=== PATIENT | male | born 1955 | race Caucasian/White ===

== ENCOUNTER 2020-09-14 10:09 | Outpatient (REF) | payer OTHER, SELFPAY ==
[2020-09-14 13:56] LABS: MANUAL DIFF FLAG NO
[2020-09-14 14:10] LABS: Basophils Percent Auto 0.2 % (0-2); Eosinophils Absolute Auto 0.3 X10*3/uL (0.0-0.4); Eosinophils Percent Auto 4.3 % (0-4); Hematocrit 41.5 % (42-52); Hemoglobin 13.6 g/dl (14.0-18.0); Imm Gran Abs Auto 0.01 X10*3/uL (0.00-0.03); Imm Gran Pct Auto 0.2 % (0.0-0.4); Lymphocytes Absolute Auto 1.7 X10*3/uL (1.2-4.9); Lymphocytes Percent Auto 26.5 % (20-40); Mean Corpuscular HGB Conc 32.8 g/dl (31.0-36.0); Mean Corpuscular Hemoglobin 28.8 pg (27.0-33.0); Mean Corpuscular Volume 87.7 fL (80-98); Mean Platelet Volume 10.5 fL (9.4-12.4); Monocytes Absolute Auto 0.8 X10*3/uL (0.1-1.2); Monocytes Percent Auto 12.8 % (2-11); Neutrophils Absolute Auto 3.6 X10*3/uL (2.0-8.3); Platelet Count 229 X10*3/uL (160-400); Red Blood Count 4.73 X10*6/uL (4.60-5.80); Red Cell Distribution Width 12.4 % (11.0-16.0); White Blood Count 6.5 X10*3/uL (4.8-10.8)
[2020-09-14 14:45] LABS: Alanine Aminotransferase 26 U/L (0-40); Albumin Level 4.4 g/dL (3.5-5.0); Alkaline Phosphatase 60 U/L (39-117); Anion Gap 15 (12-20); Aspartate Amino Transferase 25 U/L (5-37); Bilirubin Total 0.4 mg/dL (0.0-1.0); Blood Urea Nitrogen 16 mg/dL (9-16); Calcium 9.4 mg/dL (8.4-10.2); Carbon Dioxide 28 mmol/L (22-29); Chloride 102 mmol/L (96-108); Estimated Glomerular Filt Rate > 60; Glucose Random 140 mg/dL (60-115); Iron 68 mcg/dL (45-160); Percent Iron Saturation 19 % (15-50); Potassium 4.6 mmol/l (3.3-5.1); Sodium 140 mmol/L (135-145); Total Iron Binding Capacity 354 mcg/dL (228-428); Total Protein 7.6 g/dL (6.5-8.0); Unsaturated Iron Binding 286 ug/dL
== END 2020-09-14 10:10 | disposition home or self-care (01) ==
LOC: HO.10HDL 10:09
PROVIDERS: Visit Provider Internal Medicine
DX: I10 Essential (primary) hypertension (principal); E11.9 Type 2 diabetes mellitus without complications; D64.9 Anemia, unspecified
CPT/HCPCS: 36415; 80053; 83540; 85025

== ENCOUNTER 2020-12-21 09:53 | Outpatient (REF) | payer BC, SELFPAY ==
[2020-12-21 13:32] LABS: MANUAL DIFF FLAG NO
[2020-12-21 13:36] LABS: Basophils Percent Auto 0.5 % (0-2); Eosinophils Absolute Auto 0.3 X10*3/uL (0.0-0.4); Eosinophils Percent Auto 4.3 % (0-4); Hemoglobin 13.9 g/dl (14.0-18.0); Imm Gran Abs Auto 0.02 X10*3/uL (0.00-0.03); Imm Gran Pct Auto 0.3 % (0.0-0.4); Lymphocytes Absolute Auto 1.8 X10*3/uL (1.2-4.9); Lymphocytes Percent Auto 27.7 % (20-40); Mean Corpuscular HGB Conc 33.1 g/dl (31.0-36.0); Mean Corpuscular Hemoglobin 28.5 pg (27.0-33.0); Mean Corpuscular Volume 86.1 fL (80-98); Mean Platelet Volume 10.6 fL (9.4-12.4); Monocytes Absolute Auto 0.7 X10*3/uL (0.1-1.2); Monocytes Percent Auto 10.3 % (2-11); Neutrophils Absolute Auto 3.7 X10*3/uL (2.0-8.3); Neutrophils Percent Auto 56.9 % (45-73); Platelet Count 259 X10*3/uL (160-400); Red Blood Count 4.88 X10*6/uL (4.60-5.80); Red Cell Distribution Width 12.4 % (11.0-16.0); White Blood Count 6.5 X10*3/uL (4.8-10.8)
[2020-12-21 14:09] LABS: Carbon Dioxide 23 mmol/L (22-29); Chloride 102 mmol/L (96-108); Potassium 4.3 mmol/l (3.3-5.1); Sodium 138 mmol/L (135-145)
[2020-12-21 14:10] LABS: Alanine Aminotransferase 29 U/L (0-40); Albumin Level 4.5 g/dL (3.5-5.0); Alkaline Phosphatase 76 U/L (39-117); Anion Gap 17 (12-20); Aspartate Amino Transferase 26 U/L (5-37); Bilirubin Total 0.6 mg/dL (0.0-1.0); Blood Urea Nitrogen 18 mg/dL (9-16); Calcium 9.4 mg/dL (8.4-10.2); Estimated Glomerular Filt Rate > 60; Glucose Random 179 mg/dL (60-115); Total Protein 7.6 g/dL (6.5-8.0)
[2020-12-21 14:58] LABS: Estimated Average Glucose 174 mg/dL; Hemoglobin A1c % 7.7 %
== END 2020-12-21 09:54 | disposition home or self-care (01) ==
LOC: HO.10HDL 09:53
PROVIDERS: Visit Provider Internal Medicine
DX: I10 Essential (primary) hypertension (principal); E11.9 Type 2 diabetes mellitus without complications
CPT/HCPCS: 36415; 80053; 83036; 85025

== ENCOUNTER 2021-11-27 07:43 | Outpatient (REF) | payer MEDICARE, SELFPAY ==
[2021-11-27 08:02] LABS: MANUAL DIFF FLAG NO
[2021-11-27 08:14] LABS: Basophils Percent Auto 0.2 % (0-2); Eosinophils Absolute Auto 0.3 X10*3/uL (0.0-0.4); Eosinophils Percent Auto 3.5 % (0-4); Hematocrit 45.2 % (42.0-52.0); Hemoglobin 15.4 g/dl (14.0-18.0); Imm Gran Abs Auto 0.04 X10*3/uL (0.00-0.03); Imm Gran Pct Auto 0.4 % (0.0-0.4); Lymphocytes Absolute Auto 1.8 X10*3/uL (1.2-4.9); Lymphocytes Percent Auto 20.1 % (20-40); Mean Corpuscular HGB Conc 34.1 g/dl (31.0-36.0); Mean Corpuscular Hemoglobin 28.8 pg (27.0-33.0); Mean Corpuscular Volume 84.6 fL (80.0-98.0); Mean Platelet Volume 9.9 fL (9.4-12.4); Monocytes Absolute Auto 0.9 X10*3/uL (0.1-1.2); Monocytes Percent Auto 9.5 % (2-11); Neutrophils Percent Auto 66.3 % (45-73); Platelet Count 269 X10*3/uL (160-400); Red Blood Count 5.34 X10*6/uL (4.60-5.80); Red Cell Distribution Width 12.5 % (11.0-16.0)
[2021-11-27 08:17] LABS: Appearance Urine CLEAR; Color Urine YELLOW; Glucose Urine UA 500 MG/DL (NEG); Leukocyte Esterase Urine NEG (NEG); Nitrite Urine NEG (NEG); Specific Gravity - Urine 1.025 (1.005-1.025); Urine Blood NEG (NEG); Urine Ketones 5 MG/DL (NEG); Urine Protein NEG (NEG-TRACE)
[2021-11-27 08:28] LABS: Estimated Average Glucose 220 mg/dL; Hemoglobin A1c % 9.3 %
[2021-11-27 08:32] LABS: Creatinine Urine 181.32 mg/dL
[2021-11-27 08:41] LABS: Alanine Aminotransferase 70 U/L (0-40); Albumin Level 4.5 g/dL (3.5-5.0); Alkaline Phosphatase 70 U/L (39-117); Anion Gap 13 (12-20); Aspartate Amino Transferase 46 U/L (5-37); Bilirubin Total 0.6 mg/dL (0.0-1.0); Blood Urea Nitrogen 18 mg/dL (9-16); Calcium 9.9 mg/dL (8.4-10.2); Carbon Dioxide 23 mmol/L (22-29); Chloride 103 mmol/L (96-108); Cholesterol 189 mg/dL; Estimated Glomerular Filt Rate > 60; Glucose Fasting 290 mg/dL (60-99); HDL Cholesterol 47 mg/dL; LDL Cholesterol Calculated 112 mg/dl; Potassium 4.3 mmol/L (3.3-5.1); Sodium 135 mmol/L (135-145); Total Protein 7.9 g/dL (6.5-8.0); Triglycerides 152 mg/dL
[2021-11-27 09:02] LABS: Prostate Specific Antigen 1.91 ng/mL (<0.05-4.0); Vitamin D 25-OH Total 31.7 ng/mL (>30)
== END 2021-11-27 07:44 | disposition home or self-care (01) ==
LOC: HO.LAB 07:43
PROVIDERS: PCP Internal Medicine; Visit Provider Internal Medicine
DX: E11.9 Type 2 diabetes mellitus without complications (principal); N40.0 Benign prostatic hyperplasia without lower urinary tract symptoms; I10 Essential (primary) hypertension; E78.00 Pure hypercholesterolemia, unspecified; E55.9 Vitamin D deficiency, unspecified; Z12.5 Encounter for screening for malignant neoplasm of prostate
CPT/HCPCS: 36415; 80053; 80061; 81003; 82043; 82306; 83036; 84153; 85025

== ENCOUNTER 2022-02-20 08:29 | Outpatient (REF) | payer MEDICARE, SELFPAY ==
[2022-02-20 09:22] LABS: Estimated Average Glucose 197 mg/dL; Hemoglobin A1c % 8.5 %
[2022-02-20 09:47] LABS: Alanine Aminotransferase 56 U/L (0-40); Albumin Level 4.4 g/dL (3.5-5.0); Alkaline Phosphatase 70 U/L (39-117); Anion Gap 13 (12-20); Aspartate Amino Transferase 38 U/L (5-37); Bilirubin Total 0.6 mg/dL (0.0-1.0); Blood Urea Nitrogen 16 mg/dL (9-16); Calcium 9.8 mg/dL (8.4-10.2); Carbon Dioxide 28 mmol/L (22-29); Chloride 101 mmol/L (96-108); Estimated Glomerular Filt Rate > 60; Glucose Random 248 mg/dL (60-115); Potassium 4.7 mmol/L (3.3-5.1); Sodium 137 mmol/L (135-145); Total Protein 7.7 g/dL (6.5-8.0)
[2022-02-20 11:52] LABS: Creatinine Urine 221.97 mg/dL; Microalbum/Creatinine Ratio Ur 6.7 ug/mg cr
== END 2022-02-20 08:30 | disposition home or self-care (01) ==
LOC: HO.LAB 08:29
PROVIDERS: PCP Internal Medicine; Visit Provider Internal Medicine
DX: I10 Essential (primary) hypertension (principal); E11.9 Type 2 diabetes mellitus without complications; R94.5 Abnormal results of liver function studies
CPT/HCPCS: 36415; 80053; 82043; 83036

== ENCOUNTER 2022-03-05 10:07 | Outpatient (REF) | payer MEDICARE, SELFPAY ==
--- NOTE | ~2022-03-05 | XR_ITS ---
EXAMINATION: XR SHOULDER, RIGHT CLINICAL INFORMATION: Right shoulder pain COMPARISON: None TECHNIQUE: AP external rotation, Grashey, scapular Y, and axillary views of the right shoulder. FINDINGS: The bones and soft tissues are normal. No fracture. Glenohumeral and acromioclavicular alignment is anatomic with normal joint space. No abnormal soft tissue calcifications. XR/XR shoulder RT min 2V IMPRESSION: Normal right shoulder.
== END 2022-03-05 10:08 | disposition home or self-care (01) ==
LOC: HO.XRAY 10:07
PROVIDERS: PCP Internal Medicine; Visit Provider Internal Medicine
DX: M25.511 Pain in right shoulder (principal)
CPT/HCPCS: 73030

== ENCOUNTER 2022-06-18 10:42 | Outpatient (REF) | payer MEDICARE, SELFPAY ==
[2022-06-18 13:48] LABS: Alanine Aminotransferase 54 U/L (0-40); Albumin Level 4.5 g/dL (3.5-5.0); Alkaline Phosphatase 76 U/L (39-117); Anion Gap 13 (12-20); Aspartate Amino Transferase 39 U/L (5-37); Bilirubin Total 0.5 mg/dL (0.0-1.0); Blood Urea Nitrogen 13 mg/dL (9-16); Calcium 9.4 mg/dL (8.4-10.2); Carbon Dioxide 24 mmol/L (22-29); Chloride 104 mmol/L (96-108); Estimated Glomerular Filt Rate > 60; Glucose Random 167 mg/dL (60-115); Potassium 4.6 mmol/L (3.3-5.1); Sodium 136 mmol/L (135-145); Total Protein 7.7 g/dL (6.5-8.0)
[2022-06-18 14:51] LABS: Estimated Average Glucose 174 mg/dL; Hemoglobin A1c % 7.7 %
== END 2022-06-18 10:43 | disposition home or self-care (01) ==
LOC: HO.10HDL 10:42
PROVIDERS: Visit Provider Internal Medicine
DX: E11.9 Type 2 diabetes mellitus without complications (principal); I10 Essential (primary) hypertension; N40.0 Benign prostatic hyperplasia without lower urinary tract symptoms
CPT/HCPCS: 36415; 80053; 83036

== ENCOUNTER 2022-12-28 08:26 | Outpatient (REF) | payer MEDICARE, SELFPAY ==
[2022-12-28 08:48] LABS: MANUAL DIFF FLAG NO
[2022-12-28 09:24] LABS: Basophils Percent Auto 0.3 % (0-2); Eosinophils Absolute Auto 0.3 X10*3/uL (0.0-0.4); Eosinophils Percent Auto 3.7 % (0-4); Hemoglobin 15.3 g/dl (14.0-18.0); Imm Gran Abs Auto 0.02 X10*3/uL (0.00-0.03); Imm Gran Pct Auto 0.3 % (0.0-0.4); Lymphocytes Absolute Auto 1.6 X10*3/uL (1.2-4.9); Mean Corpuscular Hemoglobin 28.8 pg (27.0-33.0); Mean Corpuscular Volume 84.6 fL (80.0-98.0); Mean Platelet Volume 10.1 fL (9.4-12.4); Monocytes Absolute Auto 0.6 X10*3/uL (0.1-1.2); Monocytes Percent Auto 9.3 % (2-11); Neutrophils Absolute Auto 4.2 x10*3/uL (2.0-8.3); Neutrophils Percent Auto 62.4 % (45-73); Platelet Count 261 X10*3/uL (160-400); Red Blood Count 5.32 X10*6/uL (4.60-5.80); Red Cell Distribution Width 12.5 % (11.0-16.0); White Blood Count 6.7 X10*3/uL (4.8-10.8)
[2022-12-28 09:47] LABS: Estimated Average Glucose 249 mg/dL; Hemoglobin A1c % 10.3 %
[2022-12-28 10:02] LABS: Microalbum/Creatinine Ratio Ur 4.6 ug/mg cr
[2022-12-28 10:03] LABS: Alanine Aminotransferase 90 U/L (0-40); Albumin Level 4.3 g/dL (3.5-5.0); Alkaline Phosphatase 64 U/L (39-117); Anion Gap 16 (12-20); Aspartate Amino Transferase 59 U/L (5-37); Bilirubin Total 0.7 mg/dL (0.0-1.0); Blood Urea Nitrogen 15 mg/dL (9-16); Calcium 9.5 mg/dL (8.4-10.2); Carbon Dioxide 25 mmol/L (22-29); Chloride 101 mmol/L (96-108); Cholesterol 198 mg/dL; Estimated Glomerular Filt Rate > 60; Glucose Fasting 247 mg/dL (60-99); HDL Cholesterol 46 mg/dL; LDL Cholesterol Calculated 126 mg/dl; Potassium 4.3 mmol/L (3.3-5.1); Sodium 138 mmol/L (135-145); Total Protein 7.4 g/dL (6.5-8.0); Triglycerides 130 mg/dL
[2022-12-28 10:21] LABS: Prostate Specific Antigen Scr 2.42 ng/mL (<0.05-4.0)
== END 2022-12-28 08:27 | disposition home or self-care (01) ==
LOC: HO.LAB 08:26
PROVIDERS: PCP Internal Medicine; Visit Provider Internal Medicine
DX: Z12.5 Encounter for screening for malignant neoplasm of prostate (principal); I10 Essential (primary) hypertension; E78.00 Pure hypercholesterolemia, unspecified; E11.9 Type 2 diabetes mellitus without complications; N40.0 Benign prostatic hyperplasia without lower urinary tract symptoms
CPT/HCPCS: 36415; 80053; 80061; 82043; 83036; 84153; 85025

== ENCOUNTER 2023-03-21 09:28 | Outpatient (REF) | payer MEDICARE, SELFPAY ==
[2023-03-21 11:54] LABS: Estimated Average Glucose 209 mg/dL; Hemoglobin A1c % 8.9 %
[2023-03-21 12:11] LABS: Anion Gap 14 (12-20); Blood Urea Nitrogen 15 mg/dL (9-16); Calcium 9.4 mg/dL (8.4-10.2); Carbon Dioxide 28 mmol/L (22-29); Chloride 103 mmol/L (96-108); Estimated Glomerular Filt Rate > 60; Glucose Random 196 mg/dL (60-115); Potassium 4.8 mmol/L (3.3-5.1); Sodium 140 mmol/L (135-145)
== END 2023-03-21 09:29 | disposition home or self-care (01) ==
LOC: HO.10HDL 09:28
PROVIDERS: Visit Provider Internal Medicine
DX: E11.9 Type 2 diabetes mellitus without complications (principal); I10 Essential (primary) hypertension
CPT/HCPCS: 36415; 80048; 83036

== ENCOUNTER 2023-07-19 08:40 | Outpatient (REF) | payer MEDICARE, SELFPAY ==
[2023-07-19 10:46] LABS: MANUAL DIFF FLAG NO
[2023-07-19 10:49] LABS: Basophils Percent Auto 0.6 % (0-2); Eosinophils Absolute Auto 0.3 X10*3/uL (0.0-0.4); Eosinophils Percent Auto 4.6 % (0-4); Hematocrit 44.9 % (42.0-52.0); Hemoglobin 14.8 g/dl (14.0-18.0); Imm Gran Abs Auto 0.02 X10*3/uL (0.00-0.03); Imm Gran Pct Auto 0.3 % (0.0-0.4); Lymphocytes Absolute Auto 1.6 X10*3/uL (1.2-4.9); Lymphocytes Percent Auto 21.8 % (20-40); Mean Corpuscular Hemoglobin 28.5 pg (27.0-33.0); Mean Corpuscular Volume 86.3 fL (80.0-98.0); Mean Platelet Volume 9.7 fL (9.4-12.4); Monocytes Absolute Auto 0.6 X10*3/uL (0.1-1.2); Monocytes Percent Auto 8.8 % (2-11); Neutrophils Absolute Auto 4.6 x10*3/uL (2.0-8.3); Neutrophils Percent Auto 63.9 % (45-73); Platelet Count 279 X10*3/uL (160-400); Red Cell Distribution Width 12.4 % (11.0-16.0); White Blood Count 7.2 X10*3/uL (4.8-10.8)
[2023-07-19 11:01] LABS: Estimated Average Glucose 151 mg/dL; Hemoglobin A1c % 6.9 % (<6.0)
[2023-07-19 11:08] LABS: Alanine Aminotransferase 38 U/L (0-40); Albumin Level 4.2 g/dL (3.5-5.0); Alkaline Phosphatase 71 U/L (39-117); Anion Gap 10 (12-20); Aspartate Amino Transferase 32 U/L (5-37); Bilirubin Total 0.4 mg/dL (0.0-1.0); Blood Urea Nitrogen 15 mg/dL (9-16); Calcium 9.5 mg/dL (8.4-10.2); Carbon Dioxide 28 mmol/L (22-29); Chloride 104 mmol/L (96-108); Cholesterol 190 mg/dL (<200); Estimated Glomerular Filt Rate > 60; Glucose Fasting 185 mg/dL (60-99); HDL Cholesterol 51 mg/dL (>40); LDL Cholesterol Calculated 123 mg/dL (<100); Potassium 4.1 mmol/L (3.3-5.1); Sodium 138 mmol/L (135-145); Total Protein 7.6 g/dL (6.5-8.0); Triglycerides 84 mg/dL (<150)
[2023-07-19 11:27] LABS: Prostate Specific Antigen Scr 2.49 ng/mL (<0.05-4.0)
[2023-07-19 12:49] LABS: Creatinine Urine 211.53 mg/dL; Microalbum/Creatinine Ratio Ur 4.2 ug/mg cr (<30)
== END 2023-07-19 08:41 | disposition home or self-care (01) ==
LOC: HO.10HDL 08:40
PROVIDERS: Visit Provider Internal Medicine
DX: Z12.5 Encounter for screening for malignant neoplasm of prostate (principal); E11.9 Type 2 diabetes mellitus without complications; E78.00 Pure hypercholesterolemia, unspecified
CPT/HCPCS: 36415; 80053; 80061; 82043; 83036; 84153; 85025

== ENCOUNTER 2023-10-31 10:08 | Outpatient (REF) | payer MEDICARE, SELFPAY ==
--- NOTE | ~2023-10-31 | XR_ITS ---
EXAMINATION: XR KNEE, BILATERAL CLINICAL INFORMATION: Bilateral knee pain. COMPARISON: Right knee 06/20/2017. Left knee 11/29/2015. TECHNIQUE: Four views of each knee. FINDINGS: Right knee: Small joint effusion. Tiny anterior superior patellar spur. Faint calcifications in the soft tissues inferior to the patella on the lateral view. Small posterior patellar spurs. Small lateral marginal osteophytes. Minimal lateral joint space narrowing. Left knee: Vascular calcifications. Small joint effusion. Tiny anterior superior patellar spur. Small posterior patellar spurs. Small lateral marginal osteophytes. Medial and lateral joint spaces are maintained. 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
--- NOTE | ~2023-10-31 | XR_ITS ---
EXAMINATION: XR KNEE, BILATERAL CLINICAL INFORMATION: Bilateral knee pain. COMPARISON: Right knee 06/20/2017. Left knee 11/29/2015. TECHNIQUE: Four views of each knee. FINDINGS: Right knee: Small joint effusion. Tiny anterior superior patellar spur. Faint calcifications in the soft tissues inferior to the patella on the lateral view. Small posterior patellar spurs. Small lateral marginal osteophytes. Minimal lateral joint space narrowing. Left knee: Vascular calcifications. Small joint effusion. Tiny anterior superior patellar spur. Small posterior patellar spurs. Small lateral marginal osteophytes. Medial and lateral joint spaces are maintained. 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
[2023-10-31 11:34] LABS: Estimated Average Glucose 209 mg/dL; Hemoglobin A1c % 8.9 % (<6.0)
[2023-10-31 11:59] LABS: Alanine Aminotransferase 52 U/L (0-40); Albumin Level 4.4 g/dL (3.5-5.0); Alkaline Phosphatase 96 U/L (39-117); Anion Gap 13 (12-20); Aspartate Amino Transferase 33 U/L (5-37); Bilirubin Total 0.5 mg/dL (0.0-1.0); Blood Urea Nitrogen 16 mg/dL (9-16); Carbon Dioxide 29 mmol/L (22-29); Chloride 102 mmol/L (96-108); Estimated Glomerular Filt Rate > 60; Glucose Random 300 mg/dL (60-115); Potassium 4.8 mmol/L (3.3-5.1); Sodium 139 mmol/L (135-145); Total Protein 8.1 g/dL (6.5-8.0)
== END 2023-10-31 10:09 | disposition home or self-care (01) ==
LOC: HO.LAB 10:08
PROVIDERS: PCP Internal Medicine; Visit Provider Internal Medicine
DX: E11.9 Type 2 diabetes mellitus without complications (principal); I10 Essential (primary) hypertension; K21.9 Gastro-esophageal reflux disease without esophagitis; K76.0 Fatty (change of) liver, not elsewhere classified; M17.0 Bilateral primary osteoarthritis of knee
CPT/HCPCS: 36415; 73564; 80053; 83036

== ENCOUNTER 2024-01-30 10:59 | Outpatient (REF) | payer MEDICARE, SELFPAY ==
[2024-01-30 13:51] LABS: Estimated Average Glucose 237 mg/dL; Hemoglobin A1c % 9.9 % (<6.0)
[2024-01-30 14:05] LABS: Alanine Aminotransferase 79 U/L (0-40); Albumin Level 4.3 g/dL (3.5-5.0); Alkaline Phosphatase 97 U/L (39-117); Anion Gap 13 (12-20); Aspartate Amino Transferase 51 U/L (5-37); Bilirubin Total 0.3 mg/dL (0.0-1.0); Blood Urea Nitrogen 13 mg/dL (9-16); Calcium 9.6 mg/dL (8.4-10.2); Carbon Dioxide 27 mmol/L (22-29); Chloride 101 mmol/L (96-108); Estimated Glomerular Filt Rate > 60; Glucose Random 309 mg/dL (60-115); Potassium 4.2 mmol/L (3.3-5.1); Sodium 137 mmol/L (135-145); Total Protein 7.8 g/dL (6.5-8.0)
== END 2024-01-30 11:00 | disposition home or self-care (01) ==
LOC: HO.10HDL 10:59
PROVIDERS: Visit Provider Internal Medicine
DX: E11.9 Type 2 diabetes mellitus without complications (principal); I10 Essential (primary) hypertension; K21.9 Gastro-esophageal reflux disease without esophagitis
CPT/HCPCS: 36415; 80053; 83036

== ENCOUNTER 2024-05-19 13:36 | Outpatient (REF) | payer MEDICARE, SELFPAY ==
[2024-05-19 14:47] LABS: Estimated Average Glucose 217 mg/dL; Hemoglobin A1c % 9.2 % (<6.0)
[2024-05-19 15:06] LABS: Anion Gap 13 (12-20); Blood Urea Nitrogen 17 mg/dL (9-16); Calcium 9.9 mg/dL (8.4-10.2); Carbon Dioxide 28 mmol/L (22-29); Chloride 104 mmol/L (96-108); Estimated Glomerular Filt Rate > 60; Glucose Random 170 mg/dL (60-115); Potassium 4.1 mmol/L (3.3-5.1); Sodium 141 mmol/L (135-145)
== END 2024-05-19 13:37 | disposition home or self-care (01) ==
LOC: HO.LAB 13:36
PROVIDERS: PCP Internal Medicine; Visit Provider Internal Medicine
DX: E11.9 Type 2 diabetes mellitus without complications (principal)
CPT/HCPCS: 36415; 80048; 83036

== ENCOUNTER 2024-08-20 08:38 | Outpatient (REF) | payer MEDICARE, SELFPAY ==
[2024-08-20 11:26] LABS: Estimated Average Glucose 194 mg/dL; Hemoglobin A1c % 8.4 % (<6.0)
[2024-08-20 11:29] LABS: Anion Gap 11 (12-20); Blood Urea Nitrogen 12 mg/dL (9-16); Calcium 9.2 mg/dL (8.4-10.2); Carbon Dioxide 27 mmol/L (22-29); Chloride 104 mmol/L (96-108); Estimated Glomerular Filt Rate > 60; Glucose Random 155 mg/dL (60-115); Potassium 3.9 mmol/L (3.3-5.1); Sodium 138 mmol/L (135-145)
== END 2024-08-20 08:39 | disposition home or self-care (01) ==
LOC: HO.10HDL 08:38
PROVIDERS: Visit Provider Internal Medicine
DX: E11.9 Type 2 diabetes mellitus without complications (principal)
CPT/HCPCS: 36415; 80048; 83036

== ENCOUNTER 2024-09-07 08:31 | Outpatient (AMB) | payer MEDICARE, SELFPAY ==
--- NOTE | 2024-09-07 08:34 | MHC.OFFWIV ---
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 which has been going for about 2 days. 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 While every effort has been made to ensure accuracy, gasateria attendant errors may have been included. The patient is a 69 year old male who presents to the clinic today with urinary frequency, urgency, burning for the last 2 days with objective fever. He denies better pain, back pain, blood in urine. [facility] Social History Patient Tobacco Use Status: Former Tobacco user Review of Systems Const All systems reviewed & are unremarkable except as noted in HPI and below Physical Exam Vital Signs: Last Vital Signs Temp 98.1 F 09/07/24 08:36 Pulse 92 09/07/24 08:36 BP 142/80 H 09/07/24 08:36 Pulse Ox 98 09/07/24 08:36 BMI result Body Mass Index 27.9 Const General: cooperative, healthy appearing, comfortable, no acute distress and well developed Orientation/consciousness: patient oriented x3 Limitations: no limitations Resp Effort & Inspection: normal respiratory effort and able to speak in complete sentences General: Yes no CVA tenderness Back/Spine/Pelvis Back: no CVA tenderness Neuro General: patient oriented x3 Assessment & Plan Assessment & Plan (1) UTI (urinary tract infection): Code(s): N39.0 - Urinary tract infection, site not specified Qualifiers: Urinary tract infection type: acute cystitis Hematuria presence: with hematuria Qualified Code(s): N30.01 - Acute cystitis with hematuria Plan: Antibiotics sent to requested pharmacy. Advised patient to take until complete. Advised patient to follow up should his symptoms not completely resolve, or have at least moderate improvement after 48 hours of treatment. Advised increased hydration. Add advised follow up as needed with worsening or failure to resolve. Plan See above for full details and plan. Medications: New ciprofloxacin HCl 500 mg PO BID 7 days 14 tabs 0RF Coding Level of Care Code Est Pt Level 3 (76453) Diagnoses Acute cystitis with hematuria N30.01 Urinary tract infection type: acute cystitis Hematuria presence: with hematuria
[2024-09-07 08:36] VITALS: BP 142/80; PULSE 92; TEMP 36.7; O2SAT 98; BMI 27.9
== END 2024-09-07 08:50 | disposition home or self-care (01) ==
PROVIDERS: PCP Internal Medicine; Visit Provider Registered Nurse
DX: N30.01 Acute cystitis with hematuria (principal)

== ENCOUNTER → 2024-09-07 08:31 | Outpatient (BNVA) | payer MEDICARE, SELFPAY | PROVIDERS: PCP Internal Medicine; Visit Provider Registered Nurse | DX: N30.01 Acute cystitis with hematuria (principal) | CPT/HCPCS: 99212 ==

== ENCOUNTER 2024-09-09 08:10 | Outpatient (REF) | payer MEDICARE, SELFPAY ==
[2024-09-09 11:18] LABS: C Reactive Protein 2.23 mg/dL (< or = 0.50)
[2024-09-11 01:39] LABS: Lyme Abs Screen <0.90 index
== END 2024-09-09 08:11 | disposition home or self-care (01) ==
LOC: HO.10HDL 08:10
PROVIDERS: Visit Provider Internal Medicine
DX: N39.0 Urinary tract infection, site not specified (principal); R21 Rash and other nonspecific skin eruption
CPT/HCPCS: 36415; 82550; 86140; 86617; 86618

== ENCOUNTER 2024-10-30 08:12 | Outpatient (REF) | payer MEDICARE, SELFPAY ==
[2024-10-30 08:27] LABS: MANUAL DIFF FLAG NO
[2024-10-30 08:54] LABS: Basophils Percent Auto 0.3 % (0-2); Eosinophils Absolute Auto 0.2 X10*3/uL (0.0-0.4); Eosinophils Percent Auto 2.8 % (0-4); Hematocrit 43.3 % (42.0-52.0); Hemoglobin 14.6 g/dl (14.0-18.0); Imm Gran Abs Auto 0.02 X10*3/uL (0.00-0.03); Imm Gran Pct Auto 0.3 % (0.0-0.4); Lymphocytes Absolute Auto 1.6 X10*3/uL (1.2-4.9); Lymphocytes Percent Auto 21.1 % (20-40); Mean Corpuscular HGB Conc 33.7 g/dl (31.0-36.0); Mean Corpuscular Hemoglobin 29.3 pg (27.0-33.0); Mean Corpuscular Volume 86.9 fL (80.0-98.0); Mean Platelet Volume 9.9 fL (9.4-12.4); Monocytes Absolute Auto 0.7 X10*3/uL (0.1-1.2); Monocytes Percent Auto 9.5 % (2-11); Neutrophils Absolute Auto 5.1 x10*3/uL (2.0-8.3); Platelet Count 259 X10*3/uL (160-400); Red Blood Count 4.98 X10*6/uL (4.60-5.80); Red Cell Distribution Width 12.9 % (11.0-16.0); White Blood Count 7.7 X10*3/uL (4.8-10.8)
[2024-10-30 08:58] LABS: Estimated Average Glucose 174 mg/dL; Hemoglobin A1C 223.4037 umol/L; Hemoglobin A1c % 7.7 % (<6.0); Total Hemoglobin (HGBA1C) 3705.5525 umol/L
[2024-10-30 09:37] LABS: Appearance Urine Clear; Color Urine Yellow; Glucose Urine UA 100 mg/dL (Negative); Leukocyte Esterase Urine Trace (Negative); Nitrite Urine Negative (Negative); PH 5.5 (5.0-9.0); Specific Gravity - Urine 1.025 (1.005-1.025); UMIC TRIGGER UA YES; Urine Blood Negative (Negative); Urine Ketones Negative (Negative); Urine Protein Negative (Neg-Trace)
[2024-10-30 09:40] LABS: Bacteria Urine None Seen (None Seen); Hyaline Casts Urine 0-2 /LPF (0-2); RBC Urine 0-2 /HPF (0-2); Squamous Epithelial Cell Urine 0-2 /HPF (0-2)
[2024-10-30 09:50] LABS: Alanine Aminotransferase 67 U/L (0-40); Albumin Level 4.4 g/dL (3.5-5.0); Alkaline Phosphatase 71 U/L (39-117); Anion Gap 10 (12-20); Aspartate Amino Transferase 49 U/L (5-37); Bilirubin Total 0.5 mg/dL (0.0-1.0); Blood Urea Nitrogen 15 mg/dL (9-16); Calcium 9.9 mg/dL (8.4-10.2); Carbon Dioxide 29 mmol/L (22-29); Chloride 105 mmol/L (96-108); Cholesterol 176 mg/dL (<200); Estimated Glomerular Filt Rate > 60; Glucose Fasting 176 mg/dL (60-99); HDL Cholesterol 47 mg/dL (>40); LDL Cholesterol Calculated 111 mg/dL (<100); Potassium 4.4 mmol/L (3.3-5.1); Sodium 140 mmol/L (135-145); Total Protein 7.7 g/dL (6.5-8.0); Triglycerides 90 mg/dL (<150)
[2024-10-30 10:17] LABS: Creatinine Urine 232.92 mg/dL; Microalbum/Creatinine Ratio Ur 5.5 ug/mg cr (<30)
== END 2024-10-30 08:13 | disposition home or self-care (01) ==
LOC: HO.LAB 08:12
PROVIDERS: PCP Internal Medicine; Visit Provider Internal Medicine
DX: E11.9 Type 2 diabetes mellitus without complications (principal); I10 Essential (primary) hypertension; E78.00 Pure hypercholesterolemia, unspecified; Z12.5 Encounter for screening for malignant neoplasm of prostate; N40.0 Benign prostatic hyperplasia without lower urinary tract symptoms
CPT/HCPCS: 36415; 80053; 80061; 81001; 81003; 82043; 82570; 83036; 84153; 85025

== ENCOUNTER 2024-11-09 08:34 | Outpatient (AMB) | payer MEDICARE, SELFPAY ==
[2024-11-09 08:36] VITALS: BP 148/90; PULSE 88; TEMP 36.1; O2SAT 98; BMI 28.1
--- NOTE | 2024-11-09 08:36 | AM.OFFWIN_ITS ---
Intake Vital Signs 11/09/24 08:36 Height 5 ft 8 in Weight 185 lb BMI 28.1 BP 148/90 H Blood Pressure Location Lt brachial Position Sitting Pulse 88 Pulse Source Pulse Oximeter Temp 97.0 F Temp Source Temporal Artery Scan Pulse Oximetry (%) 98 Oxygen Delivery Method Room Air Intake Visit Reasons: EP sore throat,cough Intake Note: Pt presents to the office today for c/o sore throat,cough, headache x1 week. Patient Tobacco Use Status: Former Tobacco user Allergies No Known Allergies Allergy (Unverified 11/09/24 08:38) HPI EP sore throat,cough HPI Details This note is constructed using voice recognition software. While every effort has been made to ensure accuracy, data warehouse manager errors may have been included. The patient is a 69 year old male who presents to the clinic today with sore throat and cough for the past week, with slight pressure in his ears. He denies fever, chills, dyspnea. He tried otc cold medicine which did not seem to help. 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 He tested for covid negative at home, declines additional testing. [facility] Social History Patient Tobacco Use Status: Former Tobacco user Review of Systems Const All systems reviewed & are unremarkable except as noted in HPI and below Physical Exam Vital Signs: Last Vital Signs Temp 97.0 F 11/09/24 08:36 Pulse 88 11/09/24 08:36 BP 148/90 H 11/09/24 08:36 Pulse Ox 98 11/09/24 08:36 Oxygen Delivery Method Room Air 11/09/24 08:36 BMI result Body Mass Index 28.1 Const General: cooperative, healthy appearing, comfortable and no acute distress Orientation/consciousness: patient oriented x3 Limitations: no limitations HEENT Head: Yes normal to inspection Ears: hearing grossly normal bilaterally, external ears normal and TM abnormal retracted General nose exam: Normal external nose present, No nasal discharge present and Abnormal mucous membranes and turbinates present boggy and pale Face and sinus: Yes normal facial exam and Yes sinuses nontender Mouth: Normal oral and palatal mucosa present and moist mucous membranes Throat: Yes tonsils normal, Yes uvula midline, Yes posterior oropharynx abnormal (Erythema), Yes postnasal drainage and Yes cobblestoning Eyes General: appearance normal, both eyes and all related structures Neck Neck: Yes normal visual inspection Resp Effort & Inspection: normal respiratory effort, able to speak in complete sentences, Actively coughing, no respiratory distress, not tachypneic, no tripod positioning and no use of accessory muscles Auscultation: clear to auscultation bilaterally Cardio Rate: regular rate Rhythm: regular rhythm Heart sounds: normal S1 and S2 Skin General skin exam: no rashes or lesions noted Neuro General: patient oriented x3 Extrem General: Yes normal to inspection and Yes no clubbing, cyanosis or edema Results AMB Rapid Strep AMB Rapid Strep Negative Last Edit by Shirin Ledezma CMA on 11/09/24 08:46 Assessment & Plan Assessment & Plan (1) Allergic rhinitis: Code(s): J30.9 - Allergic rhinitis, unspecified Qualifiers: Allergic rhinitis trigger: unspecified Allergic rhinitis seasonality: unspecified Qualified Code(s): J30.9 - Allergic rhinitis, unspecified Plan: in office rapid strep negative. Offerred covid, flu, rsv test due to symptoms, but declined by patient. Adivsed mask wear until 10 days post symptom onset due to this. Supportive measures encouraged and reviewed. Advised patient to try a Flonase nasal spray and second-generation antihistamine such as Zyrtec, Claritin, Juanita or similar. Advised consideration of sinus rinse if needed. Advised patient to follow up with primary care provider with worsening or failu re to resolve. Plan See above for full details and plan. Coding Level of Care Code Est Pt Level 3 (38745) Diagnoses Allergic rhinitis, unspecified seasonality, unspecified trigger J30.9 Allergic rhinitis trigger: unspecified Allergic rhinitis seasonality: unspecified
== END 2024-11-09 09:30 | disposition home or self-care (01) ==
PROVIDERS: PCP Internal Medicine; Visit Provider Registered Nurse
DX: Z13.9 Encounter for screening, unspecified (principal); J30.9 Allergic rhinitis, unspecified

== ENCOUNTER → 2024-11-09 08:34 | Outpatient (BNVA) | payer MEDICARE, SELFPAY | PROVIDERS: PCP Internal Medicine; Visit Provider Registered Nurse | DX: J30.9 Allergic rhinitis, unspecified (principal); J02.9 Acute pharyngitis, unspecified; R05.9 Cough, unspecified | CPT/HCPCS: 87880; 99212 ==

== ENCOUNTER 2025-02-05 08:15 | Outpatient (REF) | payer MEDICARE, SELFPAY ==
[2025-02-05 11:00] LABS: Estimated Average Glucose 169 mg/dL; Hemoglobin A1c % 7.5 % (<6.0)
[2025-02-05 11:10] LABS: Alanine Aminotransferase 38 U/L (0-40); Alkaline Phosphatase 71 U/L (39-117); Anion Gap 9 (12-20); Aspartate Amino Transferase 36 U/L (5-37); Bilirubin Total 0.4 mg/dL (0.0-1.0); Blood Urea Nitrogen 15 mg/dL (9-16); Calcium 9.1 mg/dL (8.4-10.2); Carbon Dioxide 28 mmol/L (22-29); Chloride 105 mmol/L (96-108); Estimated Glomerular Filt Rate > 60; Glucose Random 177 mg/dL (60-115); Potassium 4.2 mmol/L (3.3-5.1); Sodium 138 mmol/L (135-145); Total Protein 7.5 g/dL (6.5-8.0)
[2025-02-05 11:28] LABS: Creatinine Urine 240.81 mg/dL; Microalbum/Creatinine Ratio Ur 4.9 ug/mg cr (<30)
== END 2025-02-05 08:16 | disposition home or self-care (01) ==
LOC: HO.10HDL 08:15
PROVIDERS: Visit Provider Internal Medicine
DX: E11.9 Type 2 diabetes mellitus without complications (principal); I10 Essential (primary) hypertension; R79.89 Other specified abnormal findings of blood chemistry
CPT/HCPCS: 36415; 80053; 82043; 82570; 83036

== ENCOUNTER 2025-02-11 15:30 | Outpatient (AMB) | payer MEDICARE, SELFPAY ==
--- NOTE | 2025-02-11 15:42 | A.OFFPC_ITS ---
Vital Signs 02/11/25 15:43 Height 5 ft 8 in Weight 185 lb BMI 28.1 BP 126/74 Blood Pressure Location Lt brachial Position Sitting Respiration 17 Pulse 78 Pulse Source Pulse Oximeter Temp 97.8 F Temp Source Axillary Pulse Oximetry (%) 98 Oxygen Delivery Method Room Air Intake Visit Reasons: Routine Intake Note: Pt is here for a routine appt every three months, and he also have lab done last week. Compensation Expert Required: No Allergies No Known Allergies Allergy (Unverified 02/11/25 15:47) Fall risk assessment: No Falls in past year Dental Screening Did you have a dental visit in the last 12 months?: Yes Did you have a dental problem in the last 6 months where you did not have access to dental care?: No Was dental information given to patient?: Yes HPI HPI Comments History of Present Illness Details Patient is an 69 year old female with a past medical history of DM, hypertension, hyperlipidemia, RAMIN, colon polyps, anemia, CKD, lumbar stenosis, presenting for follow up Diabetes: on glipizide 10mg daily, ozempic, metformin 500mg twice daily, Lantus. Last A1C 7.5% CV: On amlodipine, atenolol, atorvastatin. BP controlled. Denies shortness of breath ROS CONSTITUTIONAL: Denies weight loss, fever and chills. HEENT: Denies changes in vision and hearing. RESPIRATORY: Denies SOB and cough. CV: Denies palpitations and CP GI: Denies abdominal pain, nausea, vomiting and diarrhea. : Denies dysuria and urinary frequency. MSK: Denies new myalgia and joint pain. SKIN: Denies rash and pruritus. NEUROLOGICAL: Denies headache PSYCHIATRIC: Denies recent changes in mood. PHYSICAL EXAM: GENERAL: Alert and oriented x 3. NAD EYES: EOMI. Anicteric. HENT: Moist mucous membranes. No scleral icterus. No cervical lymphadenopathy. LUNGS: Clear to auscultation bilaterally. CARDIOVASCULAR: Regular rate and rhythm. No murmur. No JVD. ABDOMEN: Soft, non-tender +bs EXTREMITIES: No edema. Non-tender. SKIN: No rashes or lesions. Warm. NEUROLOGIC: No focal neurological deficits. CN II-XII grossly intact PSYCHIATRIC: Cooperative. 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 Current occupational exposures/hazards: No Cognitive needs: No Hearing needs: No Vision needs: Yes Physical exam (Primary Care) Vital Signs: Last Vital Signs Temp 97.8 F 02/11/25 15:43 Pulse 78 02/11/25 15:43 Resp 17 02/11/25 15:43 BP 126/74 02/11/25 15:43 Pulse Ox 98 02/11/25 15:43 Oxygen Delivery Method Room Air 02/11/25 15:43 BMI result Body Mass Index 28.1 Tobacco/Smoking Status: Tobacco use Status Patient Tobacco Use Status Former Tobacco user 02/11/25 15:51 e-Cigarette/Vaping Use Former Use 02/11/25 15:51 Coding Level of Care Code New Pt Level 4 (49512) Complex EM visit Add On G2211 Diagnoses Type 2 diabetes mellitus with hyperglycemia, with long-term current use of insulin E11.65; Z79.4 Diabetes mellitus intermediate project manager insulin use: with intermediate project manager use Diabetes mellitus complication status: with hyperglycemia Primary hypertension I10 Hypertension type: primary hypertension Assessment & Plan Assessment & Plan (1) Diabetes type 2: Code(s): E11.9 - Type 2 diabetes mellitus without complications Category: Medical Qualifiers: Diabetes mellitus senior care insulin use: with senior care use Diabetes mellitus complication status: with hyperglycemia Qualified Code(s): E11.65 - Type 2 diabetes mellitus with hyperglycemia; Z79.4 - skilled nursing (current) use of insulin (2) Hypertension: Code(s): I10 - Essential (primary) hypertension Category: Medical Qualifiers: Hypertension type: primary hypertension Qualified Code(s): I10 - Essential (primary) hypertension Plan 69 y/o to establish care. past medical, surgical, family history reviewed Medicaitons reconciled. Labs ordered. diabetes suboptimal control. Increase ozempic to 1mg weekly Orders: Orders Hemoglobin A1c 3 Months E11.9 - Type 2 diabetes mellitus without complications Comprehensive Met. Panel 3 Months E11.9 - Type 2 diabetes mellitus without complications Lipid Panel 3 Months E11.9 - Type 2 diabetes mellitus without complications Medications: New Ozempic (semaglutide) 1 mg (0.75 mL) subcut QWEEK 3 mL 3RF NS FreeStyle Keo 3 Jolo (blood-glucose meter,continuous) As directed 1 ea 0RF NS E11.9 - Type 2 diabetes mellitus without complications, Z79.4 - petroleum terminal plant operator (current) use of insulin FreeStyle Keo 3 Plus Sensor (blood-glucose sensor) As directed 1 ea 0RF NS E11.9 - Type 2 diabetes mellitus without complications, Z79.4 - skilled nursing (current) use of insulin
[2025-02-11 15:43] VITALS: BP 126/74; PULSE 78; RESP 17; TEMP 36.6; O2SAT 98; BMI 28.1
== END 2025-02-11 16:12 | disposition home or self-care (01) ==
LOC: HO.HMCHD 15:30
PROVIDERS: PCP Internal Medicine; Visit Provider Internal Medicine
DX: E11.65 Type 2 diabetes mellitus with hyperglycemia (principal); Z79.4 Long term (current) use of insulin; I10 Essential (primary) hypertension

== ENCOUNTER → 2025-02-11 15:30 | Outpatient (BNVA) | payer MEDICARE, SELFPAY | PROVIDERS: PCP Internal Medicine; Visit Provider Internal Medicine | DX: E11.65 Type 2 diabetes mellitus with hyperglycemia (principal); I10 Essential (primary) hypertension; Z79.4 Long term (current) use of insulin | CPT/HCPCS: 99202 ==

== ENCOUNTER 2025-02-19 12:48 | Emergency (ER) | payer MEDICARE, SELFPAY ==
--- NOTE | ~2025-02-19 | CT_ITS ---
EXAMINATION: CT HEAD WITHOUT CONTRAST CLINICAL INFORMATION: trauma left side of face COMPARISON: April 29, 2012. TECHNIQUE: Contiguous axial imaging was performed from the skull base to vertex without intravenous administration of contrast. This CT examination was performed using dose optimization techniques as appropriate, variously including the following: *Automated exposure control *Adjustment of mA and/or kV according to patient size (this includes techniques or standardized protocols for targeted exams where dose is matched to indication/reason for exam; i.e. extremities or head) *Use of iterative reconstruction technique DLP: 541 mGy-cm FINDINGS: No acute intracranial hemorrhage, mass effect, midline shift, hydrocephalus or herniation. Grissom-white matter differentiation is normal. Posterior cranial fossa contents demonstrated no acute intracranial hemorrhage or mass effect. Sellar/suprasellar region demonstrated no gross masses or hemorrhage. Craniocervical junction is intact. Calcified plaques in the V3/V4 segments of the vertebral arteries and the cavernous supracavernous segments both ICA. Acute comminuted fractures involving the lateral and inferior wall of the left orbit, anterior and lateral morgan of the left maxillary sinus and the left zygomatic arc resulting in large volume of subcutaneous emphysema left assembly detailer compartment and left orbital compartment. No acute fracture in the bony calvarium. Tympanic cavities and mastoid cells are aerated. Air-fluid levels in the left maxillary sinus likely blood products. CT/CT head/brain wo IV con IMPRESSION: No acute fracture in the bony calvarium. No acute intracranial hemorrhage. Acute comminuted displaced fractures left maxillofacial. Please refer to the CT dedicated to the maxillofacial bones. Electronically signed by: Luis Antonio Lanza MD 02/19/2025 03:27 PM EDT
--- NOTE | ~2025-02-19 | CT_ITS ---
EXAMINATION: CT FACIAL BONES WITHOUT CONTRAST CLINICAL INFORMATION: Injury to the left side of the face. COMPARISON: None available. TECHNIQUE: Contiguous axial images through the maxillofacial bones using 3 mm collimation with bone and soft tissue algorithm. Sagittal and coronal reformatted images acquired. This CT examination was performed using dose optimization techniques as appropriate, variously including the following: *Automated exposure control *Adjustment of mA and/or kV according to patient size (this includes techniques or standardized protocols for targeted exams where dose is matched to indication/reason for exam; i.e. extremities or head) *Use of iterative reconstruction technique. DLP: 237.49 mGy centimeter. FINDINGS: Large volume of subcutaneous emphysema, left maxillofacial. There is an acute nondisplaced cortical disruption lateral wall left orbit. There is an acute comminuted 3 mm displaced cortical disruption in the inferior wall left orbit extending into the infraorbital foramen. There is intraconal and extraconal compartment subcutaneous emphysema left orbit. There is no hematoma or fluid collections in the intraconal or extraconal compartments of the left orbit. There is an acute comminuted displaced cortical disruption involving the left zygomatic arc. There is an acute comminuted displaced cortical disruption in the anterior wall and lateral wall, left maxillary sinus. There is subcutaneous emphysema involving mostly the left orbit and left sales counselor compartment. The mandible is intact. The pterygopalatine plates are intact. There is air-fluid levels in the left maxillary sinus. The nasal bones, nasal septum and vomer are intact. The right orbit is intact. The eyeballs are intact. Right zygomatic arc is intact. Right maxillary is intact. Calcified plaques in the carotid bulbs and proximal ICAs mostly on the left side. Tympanic cavities and mastoid cells are aerated. CT/CT facial bones wo IV con IMPRESSION: Acute comminuted displaced fractures involving the left maxillofacial bones. No retrobulbar/intraocular hematoma, left orbit. Consider injury to the left infraorbital foramen nerve. Electronically signed by: Luis Antonio Lanza MD 02/19/2025 03:24 PM EDT
[2025-02-19 12:51] VITALS: BP 162/95; PULSE 97; RESP 16; TEMP 36.4; O2SAT 95; BMI 27.6
--- NOTE | 2025-02-19 12:56 | ED_ITS ---
HPI - General Adult General Chief complaint: Head Injury Stated complaint: l side facial inj with crowbar Time Seen by Provider: 02/19/25 15:00 Source: patient Mode of arrival: ambulatory Limitations: no limitations History of Present Illness ED Provider: woodrow conway np HPI narrative: patient is a 69-year-old male who presents emergency department for evaluation of traumatic facial injury. 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 No significant swelling, and localized pain to the area. He denies any vision changes, pressure behind the eye. Denies having an associated headache. No nausea, no vomiting, no neck pain. Denies use of anticoagulants or known coagulation disorders. Related Data Home Medications ?Medication ?Instructions ?Recorded ?Confirmed amlodipine 5 mg tablet 5 mg PO DAILY 09/07/24 atenolol 25 mg tablet 25 mg PO DAILY 09/07/24 atorvastatin 10 mg tablet 10 mg PO DAILY 09/07/24 glipizide 5 mg tablet 10 mg PO BID 09/07/24 metformin 500 mg tablet 500 mg PO BID 09/07/24 tamsulosin 0.4 mg capsule 0.4 mg PO DAILY 09/07/24 insulin glargine 100 unit/mL (3 12 unit subcut DAILY 02/11/25 02/11/25 mL) subcutaneous pen (Lantus Solostar U-100 Insulin) Previous Rx's ?Medication ?Instructions ?Recorded FreeStyle Keo 3 Plus Sensor #1 ea 02/11/25 (blood-glucose sensor) FreeStyle Keo 3 Turner #1 ea 02/11/25 (blood-glucose meter,continuous) Ozempic 1 mg/dose (4 mg/3 mL) 1 mg (0.75 mL) subcut QWEEK #3 mL 02/11/25 subcutaneous pen injector (semaglutide) amoxicillin 875 mg-potassium 1 tab PO BID #14 tabs 02/19/25 clavulanate 125 mg tablet Allergies Allergy/AdvReac Type Severity Reaction Status Date / Time No Known Allergies Allergy Verified 02/19/25 12:55 Review of Systems 2 Review of Systems: Yes all other systems are reviewed and are negative PMFSH Past Medical History Attestation statement: The following information was validated with the patient. 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 Current occupational exposures/hazards: No Cognitive needs: No Hearing needs: No Vision needs: Yes Physical Exam ED Vital Signs: Vital Signs - 24 hr 02/19/25 12:51 02/19/25 14:56 02/19/25 15:59 Temperature 97.6 F 97.6 F Pulse Rate 97 82 98 Respiratory Rate 16 12 18 Blood Pressure 162/95 H 157/85 H 164/82 H Pulse Oximetry 95 97 95 Oxygen Delivery Method Room Air Room Air Room Air 02/19/25 16:50 02/19/25 17:38 Temperature 97.8 F 97.8 F Pulse Rate 93 93 Respiratory Rate 12 12 Blood Pressure 143/80 H 143/80 H Pulse Oximetry 96 96 Oxygen Delivery Method Room Air Room Air BMI result Body Mass Index 27.6 Appearance: Alert.?Oriented to person, place and time. No acute distress.?Normal affect. Head: Normocephalic. 0.5 cm superficial laceration to the left temporal region Eyes: Pupils equal, round and reactive to light. EOMI. Conjunctiva and sclera normal? left periorbital swelling and early ecchymosis. No chemosis. No hyphema. ENT: No septal hematoma, nares patent bilaterally. Left maxillary sinus tenderness upon palpation. External auditory canal normal tympanic membrane pearly holt and intact bilaterally. Dentition normal, no fractured teeth. No lesions or lacerations of oropharynx. Uvula midline. Moist mucous membranes. Neck: Normal inspection.? Neck supple.??No palpable tenderness, step-off, deformities. CVS: Heart sounds normal. Normal heart rate and rhythm.? Pulses normal.?? Respiratory: No respiratory distress.? Lung sounds clear to auscultation bilaterally?? Abdomen: Soft and non-tender. Normoactive bowel sounds. ?? Skin: Skin warm and dry.? Normal skin color.? Normal skin turgor.?? Extremities: No lower extremity edema.? Neuro: Moves all extremities spontaneously. Sensation intact bilaterally. CN II- XII intact. No focal neuro deficits. Course Course Course Narrative: RME, this is a rapid medical exam performed by Leo rCowe please refer to primary provider for complete H&P- 69-year-old male presents for evaluation of facial pain. The patient reports that he was working with wood, when he was using a saw to cut a piece of wood, it released pressure from a crowbar that then swung and hit him in the left side of the face. He has a small abrasion to the left zygomatic arch. He has moderate edema to left side of the face overlying the zygomatic arch and infraorbital region. No step-offs or deformities. The eye appears to be unaffected. Extraocular motions are intact without entrapment or nystagmus. Plan for CT scan of the brain and facial bones Reevaluation(s) Reevaluation #1: I spoke with trauma surgeon at [facility] Dr. Jacobsen who advised speaking with maxillofacial specialty for determination as to whether patient requires transfer to [facility] ED or not versus outpatient follow- up. Time: 16:09 Reevaluation #2: I spoke with OMF specialist Dr. Beavers at [facility], reviewed findings on CT scan as well as physical exam findings, advises consistent with a tripod fracture/ zygomaticomaxillary complex fracture, advises outpatient follow-up with their office, he is within the [facility] network system, advises that they will contact patient within 14 days, reviewed that repair of these fractures is typically for cosmetic nature. Regardless, will treat with course of Augmentin, strict precautions such as refraining nasal blowing, increased pressure, applying ice for 10-15 minutes 4-6 times daily, head elevation and strict return precautions. Time: 16:27 Medications Administered Discontinued Medications Generic Name Dose Route Start Last Admin Trade Name Freq PRN Reason Stop Dose Admin Bacitracin 1 appl 02/19/25 16:51 02/19/25 17:34 Bacitracin Oint 0.9 Gm Packet TOPICAL 02/19/25 16:52 1 appl ONCE ONE Administration Protocol Diphtheria/Tetanus/Acell Pertussis 0.5 ml 02/19/25 15:41 02/19/25 15:56 Diphth,Pertus(Acell),Tet Adult 0.5 Ml Syringe IM 02/19/25 15:42 0.5 ml .ONCE ONE Administration Cefazolin Sodium 3 gm/ Sodium 100 mls @ 200 mls/hr 02/19/25 15:31 02/19/25 16:30 Chloride IV 02/19/25 16:00 Infused ONCE ONE Infusion Morphine Sulfate 4 mg 02/19/25 15:31 02/19/25 15:55 Morphine Sulfate 4 Mg/Ml Cartridge IVPUSH 02/19/25 15:32 4 mg ONCE ONE Administration Protocol Ondansetron HCl 4 mg 02/19/25 15:31 02/19/25 15:55 Ondansetron Hcl 4 Mg/2 Ml Vial IVPUSH 02/19/25 15:32 4 mg ONCE ONE Administration Medical Decision Making Medical Decision Making [facility] Narrative: patient is a 69-year-old male with past medical history of hypertension, diabetes who presents emergency department for evaluation of accidental traumatic injury to the left side of the face as per HPI.On evaluation has no focal neurological deficits. No use of anticoagulants or known coagulation disorders. Based on mechanism of injury and physical examination, CT of the head and facial bones was obtained, on my personal interpretation I do not see evidence of acute intracranial pathology pending radiologist impression at this time. CT of the facial bones revealing acute comminuted displaced fractures of the left maxillofacial bones; subcutaneous emphysema, nondisplaced fracture of the left lateral orbit wall, comminuted 3 mm displaced left inferior orbital fracture extending to the infraorbital formalin without evidence of retrobulbar or intra-ocular hematoma , comminuted displaced anterior and lateral wall of the left maxillary sinus subcutaneous emphysema. there is a 0.5 cm laceration to the left temporal region superficial not amenable to suture repair cleansed with saline, applied bacitracin. Radiologist impression includes considering injury to the left infraorbital foramen nerve. On evaluation he does not have any paresthesias, numbness, or lack of sensation to the lower eyelid, cheek, nose or upper lip. he denies any visual changes. normal corrected visual acuity. Extraocular movements are intact. Intra-ocular pressure on the left is 20.9, 18.7 on the right. There is extensive swelling and pain, patient received morphine IV for pain with prophylactic ondansetron, will cover with Ancef and update Tdap vaccination. Attempting to consult [facility] for potential trauma transfer Differential Diagnosis Differential Diagnoses: The differential diagnosis associated with the presentation includes (See narrative above) Admission/Observation Consideration of admission/observation: Escalation of care including admission/observation considered (See narrative above) Consult Healthcare Provider Management of the patient was discussed with: Mathematics Lecturer ( see narrative above and course narrative for further detail) Lab Data 02/19/25 15:15 02/19/25 15:15 Labs: Lab Results 02/19/25 02/19/25 Range/Units 15:15 15:41 WBC 10.8 (4.8-10.8) X10*3/uL RBC 5.16 (4.60-5.80) X10*6/uL Hgb 14.7 (14.0-18.0) g/dl Hct 42.8 (42.0-52.0) % MCV 82.9 (80.0-98.0) fL MCH 28.5 (27.0-33.0) pg MCHC 34.3 (31.0-36.0) g/dl RDW 12.8 (11.0-16.0) % Plt Count 265 (160-400) X10*3/uL MPV 10.0 (9.4-12.4) fL Immature Gran % (Auto) 0.3 (0.0-0.4) % Neut % (Auto) 82.9 H (45-73) % Lymph % (Auto) 9.6 L (20-40) % Hill % (Auto) 6.4 (2-11) % Eos % (Auto) 0.6 (0-4) % Baso % (Auto) 0.2 (0-2) % Lymph # (Auto) 1.0 L (1.2-4.9) X10*3/uL Hill # (Auto) 0.7 (0.1-1.2) X10*3/uL Eos # (Auto) 0.1 (0.0-0.4) X10*3/uL Baso # (Auto) 0.0 (0.0-0.2) X10*3/uL Abs Immat Gran (auto) 0.03 (0.00-0.03) X10*3/uL Absolute Neuts (auto) 9.0 H (2.0-8.3) x10*3/uL Absolute Nucleated RBC 0.000 (0.0-0.012) X10*3/uL Nucleated RBC % (auto) 0.0 (0.0-0.2) /100WBC Hold Purple Top SEE NOTE Hold Blue Top SEE NOTE Sodium 136 (135-145) mmol/L Potassium 4.5 (3.3-5.1) mmol/L Chloride 103 (96-108) mmol/L Carbon Dioxide 24 (22-29) mmol/L Anion Gap 14 (12-20) BUN 15 (9-16) mg/dL Creatinine 0.93 (0.5-1.4) mg/dL Estim Creat Clear Calc 78.4 Estimated GFR > 60 Random Glucose 184 H (60-115) mg/dL Calcium 9.6 (8.4-10.2) mg/dL Total Bilirubin 0.4 (0.0-1.0) mg/dL AST 49 H (5-37) U/L ALT 41 H (0-40) U/L Alkaline Phosphatase 80 (39-117) U/L Total Protein 8.2 H (6.5-8.0) g/dL Albumin 4.3 (3.5-5.0) g/dL Radiology Impression Discussion of test interpretation with radiology: I have reviewed the radiologist's reading. Radiologist Impression: CT/CT facial bones wo IV con IMPRESSION: Acute comminuted displaced fractures involving the left maxillofacial bones. No retrobulbar/intraocular hematoma, left orbit. Consider injury to the left infraorbital foramen nerve. CT/CT head/brain wo IV con IMPRESSION: No acute fracture in the bony calvarium. No acute intracranial hemorrhage. Acute comminuted displaced fractures left maxillofacial. Please refer to the CT dedicated to the maxillofacial bones. Discharge Plan Discharge Clinical Impression: Orbital fracture Qualifiers: Encounter type: initial encounter Fracture type: open Qualified Code(s): S 02.85XB - Fracture of orbit, unspecified, initial encounter for open fracture Maxillary sinus fracture Qualifiers: Encounter type: initial encounter Laterality: left Patient Disposition: Home, Self-Care Instructions: Facial Fracture (ED), Head Injury (ED) Additional Instructions: As discussed, you sustained multiple fractures to the orbit/ eye socket on the left as well as your left maxillary sinus which is within the region of the upper cheek. I have consulted with [facility]'s oral and maxillofacial specialist in regards to these findings. They have advised that you will follow-up outpatient, they have your contact information and should be reaching out to within 14 days to arrange a follow-up visit. Typically these types of fractures are repaired for cosmetic purposes. I have sent a prescription for Augmentin which is an antibiotic to your pharmacy will take this twice daily for 1 week. It is important during the healing process to be certain that you refrain from anything that will increase facial pressure such as blowing your nose, scuba diving or swimming. You should apply ice to the area for 10-15 minutes 4-6 times daily. Elevate your head so that you are not lying completely flat. If you experience any new or worsening symptoms or concerns which includes but is not limited to progressive pain, changes in vision, seeing floaters or spots in your vision, headache, severe pressure you should seek prompt re-evaluation. Prescriptions: New amoxicillin-pot clavulanate 875-125 mg tablet 1 tab PO BID Qty: 14 0RF No Action metformin 500 mg tablet 500 mg PO BID glipizide 5 mg tablet 10 mg PO BID tamsulosin 0.4 mg capsule 0.4 mg PO DAILY amlodipine 5 mg tablet 5 mg PO DAILY atenolol 25 mg tablet 25 mg PO DAILY atorvastatin 10 mg tablet 10 mg PO DAILY insulin glargine [Lantus Solostar U-100 Insulin] 100 unit/mL (3 mL) insulin pen 12 unit subcut DAILY Ozempic 1 mg/dose (4 mg/3 mL) pen injector 1 mg subcut QWEEK Qty: 3 3RF (DME) FreeStyle Keo 3 Plus Sensor Device See Rx Instructions .ROUTE Qty: 1 0RF Rx Instructions: As directed (DME) FreeStyle Keo 3 Turner Misc See Rx Instructions .ROUTE Qty: 1 0RF Rx Instructions: As directed Referrals: Physician,Unknown J [Primary Care Provider] - Stand Alone Forms: Work/School Release Interventions: ED Discharge Assessment Last Done: 02/19/25 17:38 Discharge Date/Time: 02/19/25 17:41 Print Language: Salvadorean
[2025-02-19 14:56] VITALS: BP 157/85; PULSE 82; RESP 12; TEMP 36.4; O2SAT 97
--- NOTE | 2025-02-19 15:32 | PC.NURSE ---
Ice applied to left side of face since arrival to bed. Pt states pain is increasing and spreading to jaw. Face is asymetric with swelling laterally and a sml abrasion. Pt reports that bones move and increased pain with blowing nose. No drainage from nares or ears. Pt denies change in vision. Awaits CT read and provider eval. periorbital swelling is advancing.
[2025-02-19 15:37] LABS: MANUAL DIFF FLAG NO
[2025-02-19 15:40] LABS: Basophils Percent Auto 0.2 % (0-2); Eosinophils Absolute Auto 0.1 X10*3/uL (0.0-0.4); Eosinophils Percent Auto 0.6 % (0-4); Hematocrit 42.8 % (42.0-52.0); Hemoglobin 14.7 g/dl (14.0-18.0); Imm Gran Abs Auto 0.03 X10*3/uL (0.00-0.03); Imm Gran Pct Auto 0.3 % (0.0-0.4); Lymphocytes Percent Auto 9.6 % (20-40); Mean Corpuscular HGB Conc 34.3 g/dl (31.0-36.0); Mean Corpuscular Hemoglobin 28.5 pg (27.0-33.0); Mean Corpuscular Volume 82.9 fL (80.0-98.0); Monocytes Absolute Auto 0.7 X10*3/uL (0.1-1.2); Monocytes Percent Auto 6.4 % (2-11); Neutrophils Percent Auto 82.9 % (45-73); Platelet Count 265 X10*3/uL (160-400); Red Blood Count 5.16 X10*6/uL (4.60-5.80); Red Cell Distribution Width 12.8 % (11.0-16.0); White Blood Count 10.8 X10*3/uL (4.8-10.8)
--- NOTE | 2025-02-19 15:46 | PC.NURSE ---
[facility] TRANSFER LINE CALLED @1049 FOR POTENTIAL TRAUMA TRANSFER
[2025-02-19 15:48] LABS: Alanine Aminotransferase 41 U/L (0-40); Albumin Level 4.3 g/dL (3.5-5.0); Anion Gap 14 (12-20); Aspartate Amino Transferase 49 U/L (5-37); Bilirubin Total 0.4 mg/dL (0.0-1.0); Blood Urea Nitrogen 15 mg/dL (9-16); Calcium 9.6 mg/dL (8.4-10.2); Carbon Dioxide 24 mmol/L (22-29); Chloride 103 mmol/L (96-108); Creatinine Clr Calc Pharmacy 78.4; Estimated Glomerular Filt Rate > 60; Glucose Random 184 mg/dL (60-115); Potassium 4.5 mmol/L (3.3-5.1); Sodium 136 mmol/L (135-145); Total Protein 8.2 g/dL (6.5-8.0)
[2025-02-19] MEDS: ondansetron HCL 4 MG/2 ML VIAL IVPUSH (15:55)
[2025-02-19] MEDS: Morphine Sulfate 4 MG/ML CARTRIDGE IVPUSH (15:55)
[2025-02-19] MEDS: ceFAZolin Sodium 3 GM in 0.9 % Sodium Chloride 100 ML IV (15:56)
[2025-02-19] MEDS: Diphth,Pertus(ACell),Tet Adult 0.5 ML SYRINGE IM (15:56)
[2025-02-19 15:59] VITALS: BP 164/82; PULSE 98; RESP 18; O2SAT 95
[2025-02-19 16:50] VITALS: BP 143/80; PULSE 93; RESP 12; TEMP 36.6; O2SAT 96
[2025-02-19 16:56] LABS: Alkaline Phosphatase 80 U/L (39-117)
[2025-02-19] MEDS: Bacitracin Oint 0.9 GM PACKET 1 APPL TOPICAL (17:34)
[2025-02-19 17:38] VITALS: BP 143/80; PULSE 93; RESP 12; TEMP 36.6; O2SAT 96
== END 2025-02-19 17:41 | disposition home or self-care (01) ==
PROVIDERS: Nurse Practitioner Family; Emergency Provider Emergency Medicine
DX: S02.85XA Fracture of orbit, unspecified, initial encounter for closed fracture (principal); S02.19XA Other fracture of base of skull, initial encounter for closed fracture; W22.8XXA Striking against or struck by other objects, initial encounter; Y93.89 Activity, other specified; Y92.009 Unspecified place in unspecified non-institutional (private) residence as the place of occurrence of the external cause; Y99.9 Unspecified external cause status; Z23 Encounter for immunization
CPT/HCPCS: 36415; 70450; 70486; 80053; 85025; 90471; 90715; 96365; 96375; 99284; J0690; J2270; J2405

== ENCOUNTER → 2025-02-19 12:56 | Outpatient (BNV) | payer MEDICARE, SELFPAY | PROVIDERS: Emergency Provider Emergency Medicine; Visit Provider Radiology Diagnostic Radiology | DX: S02.92XA Unspecified fracture of facial bones, initial encounter for closed fracture (principal) | CPT/HCPCS: 70450; 70486 ==

== ENCOUNTER 2025-05-06 08:29 | Outpatient (REF) | payer MEDICARE, SELFPAY ==
[2025-05-06 10:16] LABS: Estimated Average Glucose 148 mg/dL; Hemoglobin A1c % 6.8 % (<6.0); Total Hemoglobin (HGBA1C) 3476.6059 umol/L
[2025-05-06 10:21] LABS: Alanine Aminotransferase 35 U/L (0-40); Albumin Level 4.3 g/dL (3.5-5.0); Alkaline Phosphatase 77 U/L (39-117); Anion Gap 9 (12-20); Aspartate Amino Transferase 36 U/L (5-37); Bilirubin Total 0.5 mg/dL (0.0-1.0); Blood Urea Nitrogen 14 mg/dL (9-16); Carbon Dioxide 27 mmol/L (22-29); Chloride 105 mmol/L (96-108); Cholesterol 162 mg/dL (<200); Estimated Glomerular Filt Rate > 60; Glucose Random 159 mg/dL (60-115); HDL Cholesterol 47 mg/dL (>40); LDL Cholesterol Calculated 94 mg/dL (<100); Potassium 4.1 mmol/L (3.3-5.1); Sodium 137 mmol/L (135-145); Total Protein 7.2 g/dL (6.5-8.0); Triglycerides 108 mg/dL (<150)
== END 2025-05-06 08:30 | disposition home or self-care (01) ==
LOC: HO.10HDL 08:29
PROVIDERS: Visit Provider Internal Medicine
DX: E11.9 Type 2 diabetes mellitus without complications (principal)
CPT/HCPCS: 36415; 80053; 80061; 83036

== ENCOUNTER 2025-05-20 09:02 | Outpatient (AMB) | payer MEDICARE, SELFPAY ==
--- NOTE | 2025-05-20 08:51 | A.OFFPC_ITS ---
Vital Signs 05/20/25 09:05 Height 5 ft 8 in Weight 182 lb BMI 27.7 BP 138/70 Blood Pressure Location Lt brachial Position Sitting Pulse 78 Pulse Source Pulse Oximeter Temp 98.2 F Temp Source Axillary Pulse Oximetry (%) 97 Oxygen Delivery Method Room Air Intake Visit Reasons: 3 Month F/U Engineer Technical Staff Required: No Accompanied by: Self / Same As Patient Allergies No Known Allergies Allergy (Verified 05/20/25 08:52) Tobacco use date assessed: 05/20/25 Fall risk assessment: No Falls in past year Last assessed Fall Risk: 05/20/25 Dental Screening Dental Screen Date: 05/20/25 Did you have a dental visit in the last 12 months?: Yes Did you have a dental problem in the last 6 months where you did not have access to dental care?: No HPI HPI Comments History of Present Illness Details Patient is an 69 year old female with a past medical history of DM, hypertension, hyperlipidemia, RAMIN, colon polyps, anemia, CKD, lumbar stenosis, presenting for follow up Diabetes: on glipizide 10mg daily, ozempic-increased to 1mg last visit. metformin 500mg twice daily, Lantus. A1C is 6.8% from 7.5%. Eye exam is overdue-[facility] [place] CV: On amlodipine, atenolol, atorvastatin. BP is well controlled. Denies shortness of breath ROS CONSTITUTIONAL: Denies weight loss, fever and chills. HEENT: Denies changes in vision and hearing. RESPIRATORY: Denies SOB and cough. CV: Denies palpitations and CP GI: Denies abdominal pain, nausea, vomiting and diarrhea. : Denies dysuria and urinary frequency. MSK: Denies new myalgia and joint pain. SKIN: Denies rash and pruritus. NEUROLOGICAL: Denies headache PSYCHIATRIC: Denies recent changes in mood. PHYSICAL EXAM: GENERAL: Alert and oriented x 3. NAD EYES: EOMI. Anicteric. HENT: Moist mucous membranes. No scleral icterus. No cervical lymphadenopathy. LUNGS: Clear to auscultation bilaterally. CARDIOVASCULAR: Regular rate and rhythm. No murmur. No JVD. ABDOMEN: Soft, non-tender +bs EXTREMITIES: No edema. Non-tender. SKIN: No rashes or lesions. Warm. NEUROLOGIC: No focal neurological deficits. CN II-XII grossly intact PSYCHIATRIC: Cooperative. Appropriate mood and affect [facility] Family History Mother No problems noted. Father No problems noted. 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 1. Little interest or pleasure in doing things: not at all 2. Feeling down, depressed, or hopeless: not at all 3. Trouble falling or staying asleep, or sleeping too much: not at all 4. Feeling tired or having little energy: not at all 5. Poor appetite or overeating: not at all 6. Feeling bad about yourself - or that you are a failure or have let yourself or your family down: not at all 7. Trouble concentrating on things, such as reading the newspaper or watching television: not at all 8. Moving or speaking so slowly that other people could have noticed. Or the opposite - being so fidgety or restless that you have been moving around a lot more than usual: not at all 9. Thoughts that you would be better off or of hurting yourself in some way: not at all Total score: 0 Depression Screening Interpretation: Negative Depression Screening Done: Yes 11703 - PHQ-9 Billing: Yes Source: Developed by Drs. Lázaro Brunson, Lis Snyder, Andrzej Graff and colleagues, with an educational jalil from [employer]. Thrive Questionnaire Date Thrive assessed: 05/20/25 I am a: Patient Within the past 12 months, did the food you bought not last and you didn't have the money to get more?: Never true Within the past 12 months, did you worry whether your food would run out before you got money to buy more?: Never true Do you have trouble paying for medicines?: No Do you have trouble getting transportation to medical appointments?: No Do you have trouble paying your heating and electricity bill?: No Do you have trouble taking care of your child, family member or friend?: No Do you have trouble with day-to-day activities such as bathing, preparing meals, shopping, managing finances, etc.?: No Are you currently unemployed and looking for a job?: No Are you interested in more education?: No THRIVE Score: 0 AUDIT C Alcohol Use Questionnaire (AUDIT-C) 1. How often do you have a drink containing alcohol?: Never 3. How often do you have six or more drinks on one occasion?: Never Total Score: 0 POLI-7 AMB Questionnaire POLI-7 Date POLI - 7 assessed: 05/20/25 Feeling nervous, anxious, or on edge: 0 = Not at all Not being able to stop or control worryin = Not at all Worrying too much about different things: 0 = Not at all Trouble relaxin = Not at all Being so restless that it is hard to sit still: 0 = Not at all Becoming easily annoyed or irritable: 0 = Not at all Feeling afraid as if something awful might happen: 0 = Not at all Total POLI-7 score (0-4 normal; 5-9 mild; 10-14 moderate; 15-21 severe): 0 Source: Developed by Drs. Lázaro Brunson, Lis Snyder, Andrzej Graff and colleagues, with an educational jalil from [employer]. Physical exam (Primary Care) Tobacco/Smoking Status: Tobacco use Status Tobacco use date assessed 05/20/25 05/20/25 08:53 Patient Tobacco Use Status Former Tobacco user 05/20/25 08:53 e-Cigarette/Vaping Use Former Use 05/20/25 08:53 PHQ-9: PHQ-9 Score PHQ-9: Total score 0 05/20/25 09:00 Depression Screening Interpretation: Negative Thrive Assessment: Date of Thrive Assessment Date Thrive assessed 05/20/25 05/20/25 08:53 Coding Level of Care Code Est Pt Level 4 (61802) Diagnoses Type 2 diabetes mellitus without complication, with long-term current use of insulin E11.9; Z79.4 Diabetes mellitus shelter insulin use: with shelter use Diabetes mellitus complication status: without complication Type 2 diabetes mellitus without complication, with long-term current use of insulin E11.9; Z79.4 Diabetes mellitus complication status: without complication Primary hypertension I10 Hypertension type: primary hypertension Additional Codes PHQ-9 - 17189 - PHQ-9 Billing: Yes ([id number]) Assessment & Plan Assessment & Plan (1) Diabetes type 2: Code(s): E11.9 - Type 2 diabetes mellitus without complications Category: Medical Qualifiers: Diabetes mellitus termination clerk insulin use: with shelter use Diabetes mellitus complication status: without complication Qualified Code(s): E11.9 - Type 2 diabetes mellitus without complications; Z79.4 - [facility] (current) use of insulin (2) Insulin use (long-term) in type 2 diabetes: Code(s): E11.9 - Type 2 diabetes mellitus without complications; Z79.4 - termination clerk (current) use of insulin Category: Medical Qualifiers: Diabetes mellitus complication status: without complication Qualified Code(s): E11.9 - Type 2 diabetes mellitus without complications; Z79.4 - [facility] (current) use of insulin (3) Hypertension: Code(s): I10 - Essential (primary) hypertension Category: Medical Qualifiers: Hypertension type: primary hypertension Qualified Code(s): I10 - Essential (primary) hypertension Plan 70 year old for follow up Diabetes is now well controlled after increase in ozempic. Advised to make eye exam Labs ordered 3months HTN-well controlled on current medications Orders: Orders Hemoglobin A1c 3 Months E11.65 - Type 2 diabetes mellitus with hyperglycemia, E11.9 - Type 2 diabetes mellitus without complications, I10 - Essential (primary) hypertension, Z12.5 - Encounter for screening for malignant neoplasm of prostate, Z79.4 - [facility] (current) use of insulin Comprehensive Met. Panel 3 Months E11.65 - Type 2 diabetes mellitus with hyperglycemia, E11.9 - Type 2 diabetes mellitus without complications, I10 - Essential (primary) hypertension, Z12.5 - Encounter for screening for malignant neoplasm of prostate, Z79.4 - [facility] (current) use of insulin Prostate Specific Antigen 3 Months E11.65 - Type 2 diabetes mellitus with hyperglycemia, E11.9 - Type 2 diabetes mellitus without complications, I10 - Essential (primary) hypertension, Z12.5 - Encounter for screening for malignant neoplasm of prostate, Z79.4 - [facility] (current) use of insulin Medications: New metformin 500 mg PO BID 90 tabs 3RF Changed From insulin glargine (Lantus Solostar U-100 Insulin) 12 units subcut DAILY To Lantus Solostar U-100 Insulin (insulin glargine) 12 units (0.12 mL) subcut DAILY 15 mL 3RF NS Refilled Ozempic (semaglutide) 1 mg (0.75 mL) subcut QWEEK 9 mL 3RF NS E11.65 - Type 2 diabetes mellitus with hyperglycemia, Z79.4 - termination clerk (current) use of insulin atenolol 25 mg PO DAILY 90 tabs 3RF amlodipine 5 mg PO DAILY 90 tabs 3RF tamsulosin 0.4 mg PO DAILY 90 caps 3RF glipizide 10 mg (2 x 5 mg) PO BID 90 tabs 3RF atorvastatin 10 mg PO DAILY 90 tabs 3RF FreeStyle Keo 3 Plus Sensor (blood-glucose sensor) As directed 6 ea 3RF NS E11.9 - Type 2 diabetes mellitus without complications, Z79.4 - [facility] (current) use of insulin
[2025-05-20 09:05] VITALS: BP 138/70; PULSE 78; TEMP 36.8; O2SAT 97; BMI 27.7
--- OUTSIDE RECORDS SUMMARY | 2025-05-20 09:45 | XMS_ITS | Patient Health Record ---
Author Organization [facility] Address [address] [place] [address] Care Team Providers Care Solvent Station Attendant Name Role Phone Simon Chand MD Primary Care Provider Cricket Palacios Jr Unavailable Reason For Referral No Information Medications Medication SIG (Take, Route, Frequency, Duration) Notes Start Date End Date Status Losartan Potassium 25 MG 1 tablet Orally Once a day Active MoviPrep 100 GM as directed before colonoscopy Orally for 1 dose 09/01/2014 Active Simvastatin Active metFORMIN HCl 500 MG 1 tablet with meals Orally Twice a day Active glipiZIDE 5 MG 1 tablet Orally Once a day Active Problems Problem Type SNOMED Code ICD Code Onset Dates Problem Status W/U Status Risk Notes Problem [id number] Colon cancer screening (V76.51) Active confirmed Problem [id number] Aspirin long-term use (V58.66) Active confirmed Plan Of Treatment Future Test Test Name Order Date COLONOSCOPY 09/01/2014 Insurance Providers Payer Name Payer Address Payer Phone Subscriber Number Group Number Insured Name Patient Relationship to Insured Coverage Start Date Coverage End Date [facility] [id number] [place] [address] [id number] GLADYS DUNCAN Self - patient is the insured Medical (General) History Medical History History ICD Code hypertension diabetes mellitus Denies [place],CVA,Lung disease,renal disease liver disease Surgical History Surgery Date(Month/Year) hernia repair 2011
== END 2025-05-20 09:25 | disposition home or self-care (01) ==
LOC: HO.HMCHD 09:02
PROVIDERS: PCP Internal Medicine; Visit Provider Internal Medicine
DX: E11.9 Type 2 diabetes mellitus without complications (principal); Z79.4 Long term (current) use of insulin; I10 Essential (primary) hypertension

== ENCOUNTER → 2025-05-20 09:02 | Outpatient (BNVA) | payer MEDICARE, SELFPAY | PROVIDERS: PCP Internal Medicine; Visit Provider Internal Medicine | DX: E11.65 Type 2 diabetes mellitus with hyperglycemia (principal); Z79.4 Long term (current) use of insulin; Z13.31 Encounter for screening for depression | CPT/HCPCS: 96127; 99212 ==

== ENCOUNTER 2025-08-19 08:05 | Outpatient (REF) | payer MEDICARE, SELFPAY ==
[2025-08-19 10:54] LABS: Total Hemoglobin (HGBA1C) 3575.5906 umol/L
[2025-08-19 11:15] LABS: Prostate Specific Antigen 3.44 ng/mL (<0.05-4.0)
[2025-08-19 11:17] LABS: Alanine Aminotransferase 37 U/L (0-40); Albumin Level 4.5 g/dL (3.5-5.0); Alkaline Phosphatase 70 U/L (39-117); Anion Gap 9 (12-20); Aspartate Amino Transferase 42 U/L (5-37); Blood Urea Nitrogen 12 mg/dL (9-16); Calcium 9.3 mg/dL (8.4-10.2); Carbon Dioxide 31 mmol/L (22-29); Chloride 105 mmol/L (96-108); Estimated Glomerular Filt Rate > 60; Potassium 4.0 mmol/L (3.3-5.1); Sodium 141 mmol/L (135-145); Total Protein 7.4 g/dL (6.5-8.0)
== END 2025-08-19 08:06 | disposition home or self-care (01) ==
LOC: HO.10HDL 08:05
PROVIDERS: Visit Provider Internal Medicine
DX: Z12.5 Encounter for screening for malignant neoplasm of prostate (principal); E11.65 Type 2 diabetes mellitus with hyperglycemia; I10 Essential (primary) hypertension; Z79.4 Long term (current) use of insulin
CPT/HCPCS: 36415; 80053; 83036; 84153

== ENCOUNTER 2025-08-26 09:07 | Outpatient (AMB) | payer MEDICARE, SELFPAY ==
--- NOTE | 2025-08-25 18:27 | MHC.PC.OV ---
Vital Signs 08/26/25 09:19 Height 5 ft 8 in Weight 182 lb BMI 27.7 BP 130/80 Blood Pressure Location Lt brachial Position Sitting Pulse 74 Pulse Source Pulse Oximeter Temp 97.8 F Temp Source Temporal Artery Scan Pulse Oximetry (%) 99 Oxygen Delivery Method Room Air Intake Visit Reasons: Routine - see comments Biosolids Management Technician Required: No Accompanied by: Self / Same As Patient Allergies No Known Allergies Allergy (Verified 05/20/25 08:52) Medication List - Last Reconciled 08/30/25 by JHONATAN Gamboa amlodipine 5 mg PO DAILY aspirin 81 mg PO DAILY atenolol 25 mg PO DAILY atorvastatin 10 mg PO DAILY FreeStyle Keo 3 Plus Sensor (blood-glucose sensor) As directed NS FreeStyle Keo 3 [place] (blood-glucose,lead relay tester,cont) As directed NS glipizide 10 mg (2 x 5 mg) PO BID Lantus Solostar U-100 Insulin (insulin glargine) 12 units (0.12 mL) subcut DAILY NS Lantus Solostar U-100 Insulin (insulin glargine) 12 units (0.12 mL) subcut DAILY NS metformin 500 mg PO BID pen needle, diabetic As directed semaglutide (Ozempic) 2 mg (0.75 mL) subcut QWEEK tamsulosin 0.4 mg PO DAILY Tobacco use date assessed: 08/26/25 Fall risk assessment: No Falls in past year Last assessed Fall Risk: 08/26/25 Dental Screening Dental Screen Date: 08/26/25 Did you have a dental visit in the last 12 months?: Yes Did you have a dental problem in the last 6 months where you did not have access to dental care?: No HPI HPI Comments History of Present Illness Details The patient is a 70-year-old male with DM, HTN, HLD, RAMIN, anemia and CKD presenting with Type 2 Diabetes Mellitus management. He is currently on glipizide, metformin, Ozempic, and Lantus insulin, with a recent A1c of 7.3%, indicating a slight increase from previous levels. The patient reports occasional dietary indiscretions contributing to this increase. The patient has a history of hyperlipidemia and is on atorvastatin for management. He also takes aspirin daily for cardiovascular protection. Hypertension is managed with atenolol and amlodipine. BP today was 130/80. The patient denies any chest pain or dyspnea. The patient has benign prostatic hyperplasia, managed with tamsulosin to alleviate urinary symptoms. He reports frequent urination, which is typical for his condition. The patient experiences gastroesophageal reflux disease, managed with omeprazole as needed. He identifies certain foods as triggers for his symptoms. Osteoarthritis affects his knees, causing difficulty when rising from a kneeling position. Despite this, he maintains an active lifestyle, walking six miles daily and working part-time. He is due for Eye exam and will call for appointment. He is also due for Colonoscopy [facility] Medical History (Updated 08/30/25 @ 06:28 by JHONATAN Gamboa) Hyperlipidemia Surgical History History of colonoscopy (~01/05/15) Family History Mother No problems noted. Father No problems noted. 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 1. Little interest or pleasure in doing things: not at all 2. Feeling down, depressed, or hopeless: not at all 3. Trouble falling or staying asleep, or sleeping too much: not at all 4. Feeling tired or having little energy: not at all 5. Poor appetite or overeating: not at all 6. Feeling bad about yourself - or that you are a failure or have let yourself or your family down: not at all 7. Trouble concentrating on things, such as reading the newspaper or watching television: not at all 8. Moving or speaking so slowly that other people could have noticed. Or the opposite - being so fidgety or restless that you have been moving around a lot more than usual: not at all 9. Thoughts that you would be better off or of hurting yourself in some way: not at all Total score: 0 Depression Screening Interpretation: Negative Depression Screening Done: Yes Source: Developed by Drs. Lázaro Brunson, Lis Snyder, Andrzej Graff and colleagues, with an educational jalil from [employer]. Thrive Questionnaire Date Thrive assessed: 08/26/25 I am a: Patient Within the past 12 months, did the food you bought not last and you didn't have the money to get more?: Never true Within the past 12 months, did you worry whether your food would run out before you got money to buy more?: Never true Do you have trouble paying for medicines?: No Do you have trouble getting transportation to medical appointments?: No Do you have trouble paying your heating and electricity bill?: No Do you have trouble taking care of your child, family member or friend?: No Do you have trouble with day-to-day activities such as bathing, preparing meals, shopping, managing finances, etc.?: No Are you currently unemployed and looking for a job?: No Are you interested in more education?: No THRIVE Score: 0 AUDIT C Alcohol Use Questionnaire (AUDIT-C) 1. How often do you have a drink containing alcohol?: Never 3. How often do you have six or more drinks on one occasion?: Never Total Score: 0 POLI-7 AMB Questionnaire POLI-7 Date POLI - 7 assessed: 08/26/25 Feeling nervous, anxious, or on edge: 0 = Not at all Not being able to stop or control worryin = Not at all Worrying too much about different things: 0 = Not at all Trouble relaxin = Not at all Being so restless that it is hard to sit still: 0 = Not at all Becoming easily annoyed or irritable: 0 = Not at all Feeling afraid as if something awful might happen: 0 = Not at all Total POLI-7 score (0-4 normal; 5-9 mild; 10-14 moderate; 15-21 severe): 0 Source: Developed by Drs. Lázaro Brunson, Andrzej Fournier and colleagues, with an educational jalil from [employer]. Review of Systems Const Details: CONSTITUTIONAL Negative HEAD/NECK Negative EAR/NOSE/MOUTH/THROAT Negative RESPIRATORY Negative CARDIOVASCULAR Denies chest pain, dyspnea GASTROINTESTINAL Reports occasional heartburn, denies regular constipation or diarrhea MUSCULOSKELETAL Reports knee pain, likely arthritis-related NEUROLOGICAL Negative PSYCHIATRIC Negative Physical exam (Primary Care) Vital Signs: Last Vital Signs Temp 97.8 F 08/26/25 09:19 Pulse 74 08/26/25 09:19 BP 130/80 08/26/25 09:19 Pulse Ox 99 08/26/25 09:19 Oxygen Delivery Method Room Air 08/26/25 09:19 BMI result Body Mass Index 27.7 GENERAL Well developed, Well nourished/obese, in no apparent distress HEENT Head-Normocephalic Eyes- PERRLA, EOMI, Conjuctiva clear, lids WNL Ears- Canals clear, TMs WNL Mouth/Throat-No lesions, no erythema, no exudate Neck- Supple, No lymphadenopathy, thyroid WNL RESPIRATORY Normal I:E, Clear to auscultation CARDIOVASCULAR Regular, rate and rhythm, No murmurs or rubs GASTROINTESTINAL Soft, nontender, normal bowel sounds, no masses MUSCULOSKELETAL Back- nontender Joints- no pain swelling or deformity NEUROLOGICAL Gait normal PSYCHIATRIC Oriented to person, place and time Mood and affect WNL Appearance WNL Speech WNL Thought processes WNL Tobacco/Smoking Status: Tobacco use Status Tobacco use date assessed 08/26/25 08/25/25 18:29 Patient Tobacco Use Status Former Tobacco user 08/25/25 18:29 e-Cigarette/Vaping Use Former Use 08/25/25 18:29 PHQ-9: PHQ-9 Score PHQ-9: Total score 0 08/26/25 09:23 Depression Screening Interpretation: Negative Thrive Assessment: Date of Thrive Assessment Date Thrive assessed 08/26/25 08/25/25 18:29 Coding Level of Care Code Established Pt Est Pt Level 4 (38671) Patient Type Established Diagnoses Type 2 diabetes mellitus without complication, with long-term current use of insulin E11.9; Z79.4 Diabetes mellitus buttermaker continuous churn insulin use: with buttermaker continuous churn use Diabetes mellitus complication status: without complication Primary hypertension I10 Hypertension type: primary hypertension Hyperlipidemia E78.5 Time Spent (min) 35 Comment Time spent on chart review, medication reconciliation, H&P, patient education and orders. Assessment & Plan Assessment & Plan (1) Diabetes type 2: Code(s): E11.9 - Type 2 diabetes mellitus without complications Category: Medical Qualifiers: Diabetes mellitus penitentiary insulin use: with buttermaker continuous churn use Diabetes mellitus complication status: without complication Qualified Code(s): E11.9 - Type 2 diabetes mellitus without complications; Z79.4 - buttermaker continuous churn (current) use of insulin Plan: The patient's Type 2 Diabetes Mellitus is currently managed with glipizide, metformin, Ozempic, and Lantus insulin. The recent A1c of 7.3% indicates a need for tighter glycemic control, and an increase in the Ozempic dose is planned to help achieve this. The patient is advised to maintain dietary vigilance to prevent further increases in blood glucose levels. Patient to follow up in 3 months or sooner if needed (2) Hypertension: Comment: BP today was 130/80 Code(s): I10 - Essential (primary) hypertension Category: Medical Qualifiers: Hypertension type: primary hypertension Qualified Code(s): I10 - Essential (primary) hypertension Plan: Hypertension is controlled with atenolol and amlodipine. The patient denies any symptoms such as chest pain or dyspnea, indicating stable blood pressure management. Patient to follow up in 3 months or sooner if needed (3) Hyperlipidemia: Code(s): E78.5 - Hyperlipidemia, unspecified Category: Medical Plan: Hyperlipidemia is managed with atorvastatin, and the patient is advised to continue this regimen for lipid control. Patient to follow up in 3 months or sooner if needed Plan During the visit, we discussed the management of Type 2 Diabetes Mellitus, including the potential increase in Ozempic dosage to improve glycemic control. We also reviewed the importance of dietary management and adherence to current medication regimens for hyperlipidemia and hypertension. The patient was informed about the need for colon cancer screening with Cologuard and the pending eye examination and flu vaccination. Orders: Referrals Cologuard Test Z12.11 - Encounter for screening for malignant neoplasm of colon Medications: New pen needle, diabetic (Comfort EZ Pen [place]) As directed 100 ea 6RF semaglutide (Ozempic) 2 mg (0.75 mL) subcut QWEEK 3 mL 6RF Refilled Lantus Solostar U-100 Insulin (insulin glargine) 12 units (0.12 mL) subcut DAILY 15 mL 3RF NS Discontinued Ozempic (semaglutide) Discontinued Reason: Doctor's Order 1 mg (0.75 mL) subcut QWEEK 9 mL 3RF NS E11.65 - Type 2 diabetes mellitus with hyperglycemia, Z79.4 - halfway (current) use of insulin Patient Instructions: - Increase Ozempic dose as discussed to improve blood sugar control. - Complete the Cologuard test for colon cancer screening. - Schedule and attend an eye examination. - Obtain a flu vaccination when available. - Continue current medications for diabetes, hyperlipidemia, hypertension, and benign prostatic hyperplasia.
[2025-08-26 09:19] VITALS: BP 130/80; PULSE 74; TEMP 36.6; O2SAT 99; BMI 27.7
--- OUTSIDE RECORDS SUMMARY | 2025-08-26 09:54 | XMS_ITS | Patient Health Record ---
Author Organization [facility] Address [address] [place] [address] Care Team Providers Care Colorer Hides And Skins Name Role Phone Jagruti (RETIRED) Simon CLARK Primary Care Provide r Unavailable Cricket Hinson Jr Unavailable Reason For Referral No Information [...] Problem Status W/U Status Risk Notes Problem [id number] Colon cancer screening (V76.51) Active confirmed Problem [id number] Aspirin long-term use (V58.66) Active confirmed Plan Of Treatment Future Test Test Name Order Date COLONOSCOPY 09/01/2014 Insurance Providers Payer Name Payer Address Payer Phone Subscriber Number Group Number Insured Name Patient Relationship to Insured Coverage Start Date Coverage End Date Local [id number] [place] [address] [id number] GLADYS DUNCAN Self - patient is the insured Medical (General) History Medical History History ICD Code hypertension diabetes mellitus Denies MD,CVA,Lung disease,renal disease liver disease Surgical History Surgery Date(Month/Year) hernia repair 2011
== END 2025-08-26 09:59 | disposition home or self-care (01) ==
LOC: HO.HMCHD 09:08
PROVIDERS: PCP Internal Medicine; Visit Provider Physician Assistant Medical
DX: E11.9 Type 2 diabetes mellitus without complications (principal); Z79.4 Long term (current) use of insulin; I10 Essential (primary) hypertension; E78.5 Hyperlipidemia, unspecified

== ENCOUNTER → 2025-08-26 09:07 | Outpatient (BNVA) | payer MEDICARE, SELFPAY | PROVIDERS: PCP Internal Medicine; Visit Provider Physician Assistant Medical | DX: I10 Essential (primary) hypertension (principal); E11.9 Type 2 diabetes mellitus without complications; E78.5 Hyperlipidemia, unspecified; N40.0 Benign prostatic hyperplasia without lower urinary tract symptoms; K21.9 Gastro-esophageal reflux disease without esophagitis; M17.0 Bilateral primary osteoarthritis of knee; Z79.899 Other long term (current) drug therapy | CPT/HCPCS: 96127; 99212 ==